=== PATIENT | male | born 1955 | race Caucasian/White ===

== ENCOUNTER 2018-05-14 18:14 | Inpatient (IN) | payer MEDICAID ==
[~2018-05-14] VITALS: Ht 172.7 cm; Wt 106.1 kg
[~2018-05-14 18:14] MED LIST: ATOR80TA PO; BENA20TA77 PO; METO-385 PO; levemir SQ; novolog SUBCUT
[2018-05-15] MEDS ORDERED: ASPIRIN 325MG TABLET PO ONE (02:30)
[2018-05-15 02:52] LABS: BASOPHILS % 0.4 % (0.0-2.0); CHLORIDE 99 mEq/L (98-107); EOSINOPHILS % 2.1 % (0.0-5.0); HEMATOCRIT. 47.8 % (42.0-52.0); LYMPHOCYTES % 30.3 % (20.0-50.0); MEAN CORPUSCULAR HEMOGLOBIN 31.1 pg (28.0-32.0); MEAN CORPUSCULAR VOLUME 93.1 fL (80.0-94.0); MEAN PLATELET VOLUME 9.2 fl (7.4-10.4); MONOCYTES % 14.2 % (2.0-8.0); PLATELET 283 x1000/uL (130-400); RED BLOOD CELL COUNT 5.14 mill/uL (4.7-6.1); RED CELL DISTRIBUTION WIDTH 13.5 % (11.6-14.6)
[2018-05-15] MEDS ORDERED: HYDROCODONE/ACETAMINOPHEN 5/325MG TABLET PO PRN (08:15)
[2018-05-15] MEDS ORDERED: DIPHENHYDRAMINE 50MG/ML VIAL IV PRN (08:15)
[2018-05-15] MEDS ORDERED: ONDANSETRON HCL 4MG/2ML INJ IV PRN (08:15)
[2018-05-15] MEDS ORDERED: ACETAMINOPHEN 325MG TABLET PO PRN (08:15)
[2018-05-15] MEDS ORDERED: DOCUSATE SODIUM 100MG CAPSULE PO PRN (08:15)
[2018-05-15] MEDS ORDERED: IPRATROPIUM/ALBUTEROL 0.5-3(2.5)MG/3ML NEB INH PRN (08:15)
[2018-05-15 08:25] LABS: PHOSPHORUS 2.9 mg/dL (2.5-4.9)
[2018-05-15 14:30] VITALS: BP 178/95
[2018-05-15] MEDS: ASPIRIN 81MG EC TABLET PO SCH (15:47)
[2018-05-15] MEDS: METOPROLOL TARTRATE 50MG TABLET PO SCH ×2 (15:47→21:22)
[2018-05-15] MEDS: CLOPIDOGREL 75MG TABLET PO SCH (15:47)
[2018-05-15 16:00] VITALS: BP 150/86
[2018-05-15] MEDS ORDERED: DEXTROSE 50% WATER 50ML SYRINGE IV PRN (17:00)
[2018-05-15] MEDS ORDERED: INFLUENZA VIRUS VACCINE(AFLURIA) 0.5ML SYR IM ONE (17:00)
[2018-05-15] MEDS: BLOOD SUGAR DIAGNOSTIC STRIP TEST SCH ×2 (17:40→21:23)
[2018-05-15] MEDS: INSULIN LISPRO 100 UNITS/ML SUBCUT SCH ×2 (18:09→21:32)
[2018-05-15 19:12] LABS: CREATINE KINASE MB FRACTION 9.6 ng/mL (0.5-3.6)
[2018-05-15 20:00] VITALS: BP_SYST 131; BP_SYST 136; BP_DIAS 65; BP_DIAS 70
[2018-05-15] MEDS: ATORVASTATIN CALCIUM 40MG TABLET PO SCH (21:22)
[2018-05-15] MEDS: AMLODIPINE 5MG TABLET PO SCH (21:22)
[2018-05-15] MEDS: ENOXAPARIN 30MG/0.3ML SYR SUBCUT SCH (21:23)
[2018-05-16] VITALS: BP 138/76
[2018-05-16 04:00] VITALS: BP 146/85
[2018-05-16] MEDS ORDERED: INFLUENZA VIRUS VACCINE(AFLURIA) 0.5ML SYR IM ONE (06:00)
[2018-05-16] MEDS: GUAIFENESIN 200MG/10ML SUGAR FREE UDC PO PRN ×4 (06:11→22:09)
[2018-05-16] MEDS: BLOOD SUGAR DIAGNOSTIC STRIP TEST SCH ×4 (06:16→21:55)
[2018-05-16 06:21] LABS: BASOPHILS % 0.5 % (0.0-2.0); EOSINOPHILS % 2.7 % (0.0-5.0); HEMATOCRIT. 47.3 % (42.0-52.0); LYMPHOCYTES % 25.5 % (20.0-50.0); MEAN CORPUSCULAR HEMOGLOBIN 31.7 pg (28.0-32.0); MEAN CORPUSCULAR VOLUME 93.5 fL (80.0-94.0); MEAN PLATELET VOLUME 9.2 fl (7.4-10.4); MONOCYTES % 12.8 % (2.0-8.0); NEUTROPHILS % 58.5 % (40.0-76.0); PLATELET 273 x1000/uL (130-400); RED BLOOD CELL COUNT 5.06 mill/uL (4.7-6.1); RED CELL DISTRIBUTION WIDTH 13.4 % (11.6-14.6)
[2018-05-16 06:22] LABS: CHLORIDE 101 mEq/L (98-107)
[2018-05-16 06:32] LABS: LDL CHOLESTEROL 106 mg/dL (5-100)
[2018-05-16 06:33] LABS: CREATINE KINASE 185 IU/L (39-308); HDL CHOLESTEROL 33 mg/dL (40-59)
[2018-05-16 08:00] VITALS: BP 137/78
[2018-05-16] MEDS: ASPIRIN 81MG EC TABLET PO SCH (08:54)
[2018-05-16] MEDS: CLOPIDOGREL 75MG TABLET PO SCH (08:54)
[2018-05-16] MEDS: AMLODIPINE 5MG TABLET PO SCH ×2 (08:54→21:55)
[2018-05-16] MEDS: ENOXAPARIN 30MG/0.3ML SYR SUBCUT SCH ×2 (08:55→21:54)
[2018-05-16] MEDS: INSULIN LISPRO 100 UNITS/ML SUBCUT SCH ×4 (08:55→22:07)
[2018-05-16] MEDS: METOPROLOL TARTRATE 50MG TABLET PO SCH ×2 (09:00→21:54)
[2018-05-16 10:02] LABS: CLARITY URINE CLEAR (CLEAR); COLOR URINE YELLOW (YELLOW); KETONES URINE TRACE (NEGATIVE); LEUKOCYTE ESTERASE URINE NEGATIVE (NEGATIVE); NITRITE URINE NEGATIVE (NEGATIVE); OCCULT BLOOD URINE NEGATIVE (NEGATIVE); PROTEIN URINE TRACE (NEGATIVE); SPECIFIC GRAVITY URINE 1.037 (1.005-1.030); UROBILINOGEN URINE 0.2 E.U./dL (0.2-1.0)
[2018-05-16 12:00] VITALS: BP 141/57
[2018-05-16] MEDS ORDERED: LISINOPRIL 10MG TABLET PO NR (14:15)
[2018-05-16 16:00] VITALS: BP 134/68
[2018-05-16 20:00] VITALS: BP 125/55
[2018-05-16] MEDS: ATORVASTATIN CALCIUM 40MG TABLET PO SCH (21:54)
[2018-05-16] MEDS: NITROGLYCERIN OINT 1GM/INCH UDPKT TD SCH (22:05)
[2018-05-16] MEDS: INSULIN GLARGINE UD 100 UNITS/ML SYR SUBCUT SCH (22:08)
[2018-05-17] VITALS: BP 109/52
[2018-05-17 04:00] VITALS: BP 97/43
[2018-05-17] MEDS: BLOOD SUGAR DIAGNOSTIC STRIP TEST SCH ×4 (05:50→21:12)
[2018-05-17] MEDS: GUAIFENESIN 200MG/10ML SUGAR FREE UDC PO PRN ×4 (05:50→22:35)
[2018-05-17] MEDS: NITROGLYCERIN OINT 1GM/INCH UDPKT TD SCH ×3 (05:51→21:10)
[2018-05-17 06:44] LABS: BASOPHILS % 0.5 % (0.0-2.0); EOSINOPHILS % 2.9 % (0.0-5.0); HEMOGLOBIN. 14.8 g/dL (14.0-18.0); LYMPHOCYTES % 27.9 % (20.0-50.0); MEAN CORPUSCULAR HEMOGLOBIN 30.7 pg (28.0-32.0); MEAN CORPUSCULAR VOLUME 93.5 fL (80.0-94.0); MEAN PLATELET VOLUME 9.4 fl (7.4-10.4); MONOCYTES % 11.5 % (2.0-8.0); NEUTROPHILS % 57.2 % (40.0-76.0); PLATELET 268 x1000/uL (130-400); RED BLOOD CELL COUNT 4.81 mill/uL (4.7-6.1); RED CELL DISTRIBUTION WIDTH 13.3 % (11.6-14.6)
[2018-05-17 06:52] LABS: CHLORIDE 101 mEq/L (98-107)
[2018-05-17 07:17] LABS: CREATINE KINASE 148 IU/L (39-308)
[2018-05-17 07:20] LABS: CREATINE KINASE MB FRACTION 5.9 ng/mL (0.5-3.6)
[2018-05-17 08:00] VITALS: BP 112/49
[2018-05-17] MEDS: AMLODIPINE 5MG TABLET PO SCH ×2 (08:56→21:10)
[2018-05-17] MEDS: ASPIRIN 81MG EC TABLET PO SCH (08:56)
[2018-05-17] MEDS: CLOPIDOGREL 75MG TABLET PO SCH (08:56)
[2018-05-17] MEDS: ENOXAPARIN 30MG/0.3ML SYR SUBCUT SCH ×2 (08:57→21:00)
[2018-05-17] MEDS: INSULIN LISPRO 100 UNITS/ML SUBCUT SCH ×4 (08:58→21:52)
[2018-05-17] MEDS: METOPROLOL TARTRATE 50MG TABLET PO SCH ×2 (09:00→21:10)
[2018-05-17] MEDS: INSULIN GLARGINE UD 100 UNITS/ML SYR SUBCUT SCH ×2 (10:30→21:09)
[2018-05-17 12:00] VITALS: BP 132/68
[2018-05-17 16:00] VITALS: BP 123/36
[2018-05-17 20:00] VITALS: BP 116/51
[2018-05-17] MEDS: ATORVASTATIN CALCIUM 40MG TABLET PO SCH (21:10)
[2018-05-18] VITALS (13 sets, daily range): BP systolic 100–174; BP diastolic 44–103
[2018-05-18] MEDS: BLOOD SUGAR DIAGNOSTIC STRIP TEST SCH ×3 (05:35→20:56)
[2018-05-18] MEDS: NITROGLYCERIN OINT 1GM/INCH UDPKT TD SCH ×3 (05:35→21:04)
[2018-05-18 07:04] LABS: HEMATOCRIT 44.6 % (42.0-52.0); HEMOGLOBIN 14.9 g/dL (14.0-18.0); MEAN CORPUSCULAR HEMOGLOBIN 31.1 pg (28.0-32.0); PLATELET 269 x1000/uL (130-400); RED BLOOD CELL COUNT 4.79 mill/uL (4.7-6.1); RED CELL DISTRIBUTION WIDTH 13.4 % (11.6-14.6)
[2018-05-18 07:33] LABS: CHLORIDE 104 mEq/L (98-107)
[2018-05-18] MEDS: INSULIN LISPRO 100 UNITS/ML SUBCUT SCH ×3 (07:52→21:01)
[2018-05-18] MEDS: ENOXAPARIN 30MG/0.3ML SYR SUBCUT SCH (09:00)
[2018-05-18] MEDS: ASPIRIN 81MG EC TABLET PO SCH (09:00)
[2018-05-18] MEDS: CLOPIDOGREL 75MG TABLET PO SCH (09:00)
[2018-05-18] MEDS ORDERED: MIDAZOLAM HCL 2 MG/2 ML VIAL ONE (10:21)
[2018-05-18] MEDS ORDERED: FENTANYL CITRATE/PF 50MCG/ML 2ML VIAL ONE (10:21)
[2018-05-18] MEDS ORDERED: IODIXANOL 320MG/ML 100 ML BOTTLE IV ONE ×2 (10:22→11:31)
[2018-05-18] MEDS ORDERED: LIDOCAINE HCL 1% 20ML VIAL (Pyxis) INJ ONE (10:22)
[2018-05-18] MEDS ORDERED: IOHEXOL-300 100 ML BOTTLE ONE (11:15)
[2018-05-18] MEDS ORDERED: HYDRALAZINE 20MG/ML VIAL ONE (11:43)
[2018-05-18] MEDS ORDERED: ASPIRIN 325MG TABLET ONE (11:54)
[2018-05-18] MEDS ORDERED: CLOPIDOGREL 75MG TABLET ONE (11:55)
[2018-05-18] MEDS ORDERED: ACETAMINOPHEN 325MG TABLET PO PRN (12:00)
[2018-05-18] MEDS ORDERED: ATROPINE SULFATE 1MG/10ML SYR IV PRN (12:00)
[2018-05-18] MEDS ORDERED: HEPARIN SODIUM 1,000 UNIT/1ML VIAL IV ONE (14:20)
[2018-05-18] MEDS: AMLODIPINE 5MG TABLET PO SCH ×2 (14:31→21:03)
[2018-05-18] MEDS: METOPROLOL TARTRATE 50MG TABLET PO SCH ×2 (14:32→20:59)
[2018-05-18] MEDS ORDERED: ENOXAPARIN 30MG/0.3ML SYR SUBCUT SCH (20:00)
[2018-05-18] MEDS ORDERED: ENOXAPARIN 40MG/0.4ML SYR SUBCUT SCH (20:52)
[2018-05-18] MEDS: ATORVASTATIN CALCIUM 40MG TABLET PO SCH (20:56)
[2018-05-18] MEDS: GUAIFENESIN 200MG/10ML SUGAR FREE UDC PO PRN ×2 (20:56→20:58)
[2018-05-18] MEDS ORDERED: DOXAZOSIN MESYLATE 2MG TABLET PO SCH (21:00)
[2018-05-18] MEDS: INSULIN GLARGINE UD 100 UNITS/ML SYR SUBCUT SCH (21:03)
[2018-05-19] VITALS (10 sets, daily range): BP systolic 108–152; BP diastolic 63–84
[2018-05-19] MEDS: BLOOD SUGAR DIAGNOSTIC STRIP TEST SCH ×2 (06:20→11:14)
[2018-05-19] MEDS: NITROGLYCERIN OINT 1GM/INCH UDPKT TD SCH ×2 (06:31→14:00)
[2018-05-19 07:08] LABS: CHLORIDE 103 mEq/L (98-107)
[2018-05-19 07:09] LABS: BASOPHILS % 0.4 % (0.0-2.0); EOSINOPHILS % 1.6 % (0.0-5.0); HEMATOCRIT. 43.4 % (42.0-52.0); HEMOGLOBIN. 14.6 g/dL (14.0-18.0); LYMPHOCYTES % 18.7 % (20.0-50.0); MEAN CORPUSCULAR HEMOGLOBIN 31.4 pg (28.0-32.0); MEAN CORPUSCULAR VOLUME 93.3 fL (80.0-94.0); MEAN PLATELET VOLUME 9.5 fl (7.4-10.4); MONOCYTES % 10.8 % (2.0-8.0); NEUTROPHILS % 68.5 % (40.0-76.0); PLATELET 262 x1000/uL (130-400); RED BLOOD CELL COUNT 4.65 mill/uL (4.7-6.1); RED CELL DISTRIBUTION WIDTH 13.5 % (11.6-14.6)
[2018-05-19] MEDS: CLOPIDOGREL 75MG TABLET PO SCH (07:55)
[2018-05-19] MEDS: ASPIRIN 81MG EC TABLET PO SCH (07:56)
[2018-05-19] MEDS: AMLODIPINE 5MG TABLET PO SCH (07:56)
[2018-05-19] MEDS: INSULIN LISPRO 100 UNITS/ML SUBCUT SCH ×2 (07:56→12:42)
[2018-05-19] MEDS: METOPROLOL TARTRATE 50MG TABLET PO SCH (07:56)
[2018-05-19] MEDS: INSULIN GLARGINE UD 100 UNITS/ML SYR SUBCUT SCH (09:44)
[2018-05-19] MEDS ORDERED: CLOP75TA16 MT (12:34)
[2018-05-19] MEDS ORDERED: NITROGLYCERIN 50MCG/ML 10ML VIAL (CATH LAB) IV ONE (14:49)
[2018-05-19] MEDS ORDERED: NICARDIPINE 100MCG/ML 10ML VIAL (CATH LAB) IV ONE (14:49)
== END 2018-05-19 16:30 | disposition home or self-care (01) | DRG 174 ==
LOC: ER 18:37 → 7WST 05-15 06:50 → EDBEDREQ 05-15 07:04 → EDBEDREQTM 05-15 07:04 → ENRESERV 05-15 11:18 → 3WST 05-18 12:21
PROVIDERS: ADMIT Internal Medicine; ATTEND Internal Medicine
PROC: 027034Z Dilation of Coronary Artery, One Artery with Drug-eluting Intraluminal Device, Percutaneous Approach (ICD-10-PCS; principal; 2018-05-18)
PROC: 4A023N7 Measurement of Cardiac Sampling and Pressure, Left Heart, Percutaneous Approach (ICD-10-PCS; 2018-05-18)
PROC: B2111ZZ Fluoroscopy of Multiple Coronary Arteries using Low Osmolar Contrast (ICD-10-PCS; 2018-05-18)
DX: I21.4 Non-ST elevation (NSTEMI) myocardial infarction (principal); E11.65 Type 2 diabetes mellitus with hyperglycemia; E44.1 Mild protein-calorie malnutrition; E78.5 Hyperlipidemia, unspecified; I10 Essential (primary) hypertension; E66.01 Morbid (severe) obesity due to excess calories; E78.00 Pure hypercholesterolemia, unspecified; M54.5 Low back pain; G89.29 Other chronic pain; I25.118 Atherosclerotic heart disease of native coronary artery with other forms of angina pectoris; I45.10 Unspecified right bundle-branch block; Z95.5 Presence of coronary angioplasty implant and graft; I25.2 Old myocardial infarction; Z79.84 Long term (current) use of oral hypoglycemic drugs; Z86.73 Personal history of transient ischemic attack (TIA), and cerebral infarction without residual deficits; Z71.3 Dietary counseling and surveillance; Z68.35 Body mass index [BMI] 35.0-35.9, adult; Z82.49 Family history of ischemic heart disease and other diseases of the circulatory system
CPT/HCPCS: 36415; 71045; 72141; 72148; 80048; 80061; 82550; 82553; 82962; 83036; 83735; 83880; 84100; 84443; 84484; 85027; 85347; 90686; 92928; 93005; 93306; 93458; 93970; 97166; 99285; C1725; C1760; C1769; C1874; C1887; C1893; J0360; J1644; J1650; J1815; J2250; J3010; J3490; Q9967

== ENCOUNTER 2020-04-27 15:45 | Inpatient (IN) | payer MEDICAID ==
[~2020-04-27] VITALS: Ht 170.2 cm; Wt 107.0 kg
[~2020-04-27 15:45] MED LIST changes: +CLOP-31 MT
[2020-04-27] MEDS: NYSTATIN 100,000 UNITS/GM OINT 15GM TOP SCH (17:00)
[2020-04-27 19:22] LABS: BASOPHILS % 0.4 % (0.0-2.0); EOSINOPHILS % 1.5 % (0.0-5.0); LYMPHOCYTES % 24.3 % (20.0-50.0); MEAN CORPUSCULAR HEMOGLOBIN 31.3 pg (28.0-32.0); MEAN CORPUSCULAR VOLUME 93.9 fL (80.0-94.0); MEAN PLATELET VOLUME 8.4 fl (7.4-10.4); MONOCYTES % 9.2 % (2.0-8.0); NEUTROPHILS % 64.6 % (40.0-76.0); PLATELET 385 x1000/uL (130-400); RED BLOOD CELL COUNT 4.79 mill/uL (4.7-6.1); RED CELL DISTRIBUTION WIDTH 13.5 % (11.6-14.6)
[2020-04-27 21:42] LABS: CLARITY URINE CLEAR (CLEAR); COLOR URINE YELLOW (YELLOW); KETONES URINE NEGATIVE (NEGATIVE); LEUKOCYTE ESTERASE URINE NEGATIVE (NEGATIVE); NITRITE URINE NEGATIVE (NEGATIVE); OCCULT BLOOD URINE NEGATIVE (NEGATIVE); PROTEIN URINE NEGATIVE (NEGATIVE); SPECIFIC GRAVITY URINE 1.015 (1.005-1.030)
[2020-04-28] MEDS: NYSTATIN 100,000 UNITS/GM OINT 15GM TOP SCH ×2 (09:08→21:00)
[2020-04-28] MEDS ORDERED: DEXTROSE 50% WATER 50ML SYRINGE IV PRN (16:30)
[2020-04-28 17:00] VITALS: BP 136/73
[2020-04-28] MEDS ORDERED: ENOXAPARIN 80MG/0.8ML SYR SUBCUT SCH (17:00)
[2020-04-28] MEDS: BLOOD SUGAR DIAGNOSTIC STRIP TEST SCH ×2 (17:38→21:14)
[2020-04-28] MEDS: INSULIN LISPRO 100 UNITS/ML SUBCUT SCH ×2 (17:38→21:00)
[2020-04-28 17:50] VITALS: BP 136/73
[2020-04-28 20:00] VITALS: BP 122/70
[2020-04-28] MEDS: ACETAMINOPHEN 325MG TABLET PO PRN (21:23)
[2020-04-29] VITALS: BP 135/85
[2020-04-29 04:00] VITALS: BP 137/82
[2020-04-29] MEDS: ACETAMINOPHEN 325MG TABLET PO PRN (04:44)
[2020-04-29] MEDS: BLOOD SUGAR DIAGNOSTIC STRIP TEST SCH ×4 (06:56→21:00)
[2020-04-29 07:28] LABS: BASOPHILS % 0.5 % (0.0-2.0); EOSINOPHILS % 1.9 % (0.0-5.0); HEMATOCRIT. 43.2 % (42.0-52.0); HEMOGLOBIN. 14.4 g/dL (14.0-18.0); LYMPHOCYTES % 26.4 % (20.0-50.0); MEAN CORPUSCULAR HEMOGLOBIN 31.4 pg (28.0-32.0); MEAN CORPUSCULAR VOLUME 94.2 fL (80.0-94.0); MEAN PLATELET VOLUME 8.8 fl (7.4-10.4); MONOCYTES % 9.8 % (2.0-8.0); NEUTROPHILS % 61.4 % (40.0-76.0); PLATELET 343 x1000/uL (130-400); RED BLOOD CELL COUNT 4.59 mill/uL (4.7-6.1); RED CELL DISTRIBUTION WIDTH 13.3 % (11.6-14.6)
[2020-04-29 07:33] LABS: CHLORIDE 101 mEq/L (98-107)
[2020-04-29 07:37] LABS: INR 1.1
[2020-04-29] MEDS: INSULIN LISPRO 100 UNITS/ML SUBCUT SCH ×4 (07:50→21:00)
[2020-04-29 08:00] VITALS: BP 142/85
[2020-04-29] MEDS ORDERED: ENOXAPARIN 40MG/0.4ML SYR SUBCUT SCH (09:00)
[2020-04-29] MEDS ORDERED: METF-874 MT (11:20)
[2020-04-29] MEDS ORDERED: LISI-186 PO (11:23)
[2020-04-29] MEDS ORDERED: GLIP5TAB12 PO (11:23)
[2020-04-29] MEDS ORDERED: HYDR-4134 MT (11:23)
[2020-04-29] MEDS ORDERED: CLON0.1T MT (11:31)
[2020-04-29] MEDS ORDERED: METO25TA6 PO (11:31)
[2020-04-29] MEDS ORDERED: GABA-529 MT (11:31)
[2020-04-29] MEDS ORDERED: TAMS-11 MT (11:31)
[2020-04-29] MEDS ORDERED: CLOP75TA33 MT (11:31)
[2020-04-29] MEDS ORDERED: TRAZ-251 PO (11:31)
[2020-04-29] MEDS ORDERED: HYDR-4067 PO (11:31)
[2020-04-29] MEDS ORDERED: ESCI20TA47 MT (11:31)
[2020-04-29] MEDS ORDERED: FURO40TA5 PO (11:31)
[2020-04-29] MEDS ORDERED: PANT20TA17 MT (11:31)
[2020-04-29 12:00] VITALS: BP 128/65
[2020-04-29 16:00] VITALS: BP 137/66
[2020-04-29 20:00] VITALS: BP 156/78
[2020-04-30] VITALS: BP 159/78
[2020-04-30 04:00] VITALS: BP 148/61
[2020-04-30] MEDS: BLOOD SUGAR DIAGNOSTIC STRIP TEST SCH ×4 (06:14→21:06)
[2020-04-30] MEDS: INSULIN LISPRO 100 UNITS/ML SUBCUT SCH ×4 (07:50→21:00)
[2020-04-30] MEDS: ENOXAPARIN 30MG/0.3ML SYR SUBCUT SCH ×2 (09:26→21:08)
[2020-04-30 20:00] VITALS: BP 141/68
[2020-05-01] VITALS: BP 120/75
[2020-05-01 04:00] VITALS: BP 130/75
[2020-05-01] MEDS: BLOOD SUGAR DIAGNOSTIC STRIP TEST SCH ×4 (06:45→21:41)
[2020-05-01] MEDS: INSULIN LISPRO 100 UNITS/ML SUBCUT SCH ×4 (07:50→21:51)
[2020-05-01 08:00] VITALS: BP 153/51
[2020-05-01] MEDS: ENOXAPARIN 30MG/0.3ML SYR SUBCUT SCH ×2 (09:56→21:47)
[2020-05-01 12:00] VITALS: BP 145/65
[2020-05-01 16:00] VITALS: BP 141/51
[2020-05-01 20:00] VITALS: BP 152/82
[2020-05-02] VITALS: BP 145/83
[2020-05-02 04:00] VITALS: BP 137/72
[2020-05-02] MEDS: BLOOD SUGAR DIAGNOSTIC STRIP TEST SCH ×4 (07:16→21:59)
[2020-05-02] MEDS: INSULIN LISPRO 100 UNITS/ML SUBCUT SCH ×4 (07:18→21:55)
[2020-05-02 08:00] VITALS: BP 147/84
[2020-05-02] MEDS: ENOXAPARIN 30MG/0.3ML SYR SUBCUT SCH ×2 (08:44→21:58)
[2020-05-02 12:00] VITALS: BP 147/66
[2020-05-02 16:00] VITALS: BP 150/75
[2020-05-02 20:00] VITALS: BP 164/77
[2020-05-03 04:00] VITALS: BP 151/70
[2020-05-03] MEDS: BLOOD SUGAR DIAGNOSTIC STRIP TEST SCH ×4 (06:43→21:12)
[2020-05-03] MEDS: INSULIN LISPRO 100 UNITS/ML SUBCUT SCH ×4 (07:50→21:18)
[2020-05-03 08:00] VITALS: BP 151/59
[2020-05-03] MEDS: ENOXAPARIN 30MG/0.3ML SYR SUBCUT SCH ×2 (11:27→21:13)
[2020-05-03 12:00] VITALS: BP 162/64
[2020-05-03 16:00] VITALS: BP 153/60
[2020-05-03 20:00] VITALS: BP 132/72
[2020-05-04] VITALS: BP 136/74
[2020-05-04 04:00] VITALS: BP 153/72
[2020-05-04] MEDS: BLOOD SUGAR DIAGNOSTIC STRIP TEST SCH ×4 (06:46→20:58)
[2020-05-04 07:29] LABS: HEMATOCRIT 41.5 % (42.0-52.0); MEAN CORPUSCULAR HEMOGLOBIN 31.4 pg (28.0-32.0); MEAN CORPUSCULAR VOLUME 93.3 fL (80.0-94.0); PLATELET 338 x1000/uL (130-400); RED BLOOD CELL COUNT 4.45 mill/uL (4.7-6.1); RED CELL DISTRIBUTION WIDTH 13.4 % (11.6-14.6)
[2020-05-04 07:50] LABS: CHLORIDE 102 mEq/L (98-107)
[2020-05-04 08:00] VITALS: BP 138/70
[2020-05-04] MEDS: ENOXAPARIN 30MG/0.3ML SYR SUBCUT SCH ×2 (08:26→21:25)
[2020-05-04] MEDS: INSULIN LISPRO 100 UNITS/ML SUBCUT SCH ×4 (08:29→23:36)
[2020-05-04 20:00] VITALS: BP 157/61
[2020-05-04] MEDS: CLONIDINE 0.1MG TABLET PO PRN (21:26)
[2020-05-04] MEDS: ACETAMINOPHEN 325MG TABLET PO PRN (21:27)
[2020-05-05] VITALS: BP 150/67
[2020-05-05 04:00] VITALS: BP 121/59
[2020-05-05] MEDS: BLOOD SUGAR DIAGNOSTIC STRIP TEST SCH ×4 (07:47→21:00)
[2020-05-05] MEDS: INSULIN LISPRO 100 UNITS/ML SUBCUT SCH ×4 (07:50→22:02)
[2020-05-05 08:00] VITALS: BP 138/55
[2020-05-05] MEDS: ENOXAPARIN 30MG/0.3ML SYR SUBCUT SCH ×2 (08:55→21:37)
[2020-05-05 12:00] VITALS: BP 122/81
[2020-05-05 16:00] VITALS: BP 159/55
[2020-05-05 20:00] VITALS: BP 168/68
[2020-05-05] MEDS: CLONIDINE 0.1MG TABLET PO PRN (21:38)
[2020-05-06] VITALS: BP 125/64
[2020-05-06 04:00] VITALS: BP 130/60
[2020-05-06] MEDS: BLOOD SUGAR DIAGNOSTIC STRIP TEST SCH ×4 (06:20→20:42)
[2020-05-06] MEDS: INSULIN LISPRO 100 UNITS/ML SUBCUT SCH ×4 (07:50→20:42)
[2020-05-06 08:00] VITALS: BP 106/68
[2020-05-06] MEDS: ACETAMINOPHEN 325MG TABLET PO PRN (09:25)
[2020-05-06] MEDS: ENOXAPARIN 30MG/0.3ML SYR SUBCUT SCH ×2 (09:25→20:44)
[2020-05-06 12:00] VITALS: BP 126/58
[2020-05-06 16:00] VITALS: BP 144/66
[2020-05-06 20:00] VITALS: BP 163/72
[2020-05-07] VITALS: BP 158/75
[2020-05-07 04:00] VITALS: BP 165/66
[2020-05-07] MEDS: CLONIDINE 0.1MG TABLET PO PRN (04:48)
[2020-05-07] MEDS: BLOOD SUGAR DIAGNOSTIC STRIP TEST SCH ×4 (07:01→21:15)
[2020-05-07 08:00] VITALS: BP 144/70
[2020-05-07] MEDS: ENOXAPARIN 30MG/0.3ML SYR SUBCUT SCH ×2 (08:41→20:59)
[2020-05-07] MEDS: INSULIN LISPRO 100 UNITS/ML SUBCUT SCH ×4 (08:46→21:10)
[2020-05-07 12:00] VITALS: BP 151/69
[2020-05-07 13:10] LABS: HEMATOCRIT 36.9 % (42.0-52.0); HEMOGLOBIN 12.5 g/dL (14.0-18.0); MEAN CORPUSCULAR HEMOGLOBIN 31.2 pg (28.0-32.0); MEAN CORPUSCULAR VOLUME 91.9 fL (80.0-94.0); PLATELET 309 x1000/uL (130-400); RED BLOOD CELL COUNT 4.01 mill/uL (4.7-6.1); RED CELL DISTRIBUTION WIDTH 13.3 % (11.6-14.6)
[2020-05-07 16:00] VITALS: BP 116/68
[2020-05-07 20:00] VITALS: BP 131/68
[2020-05-08] VITALS: BP 154/75
[2020-05-08 04:00] VITALS: BP 150/70
[2020-05-08] MEDS: BLOOD SUGAR DIAGNOSTIC STRIP TEST SCH ×4 (07:30→21:00)
[2020-05-08] MEDS: INSULIN LISPRO 100 UNITS/ML SUBCUT SCH ×4 (07:50→22:29)
[2020-05-08 08:00] VITALS: BP 155/67
[2020-05-08] MEDS: ENOXAPARIN 30MG/0.3ML SYR SUBCUT SCH ×2 (09:22→22:25)
[2020-05-08 12:00] VITALS: BP 156/74
[2020-05-08 16:00] VITALS: BP 135/67
[2020-05-08 20:00] VITALS: BP 157/70
[2020-05-09] VITALS: BP 154/69
[2020-05-09 04:00] VITALS: BP 155/64
[2020-05-09] MEDS: BLOOD SUGAR DIAGNOSTIC STRIP TEST SCH ×4 (06:35→21:34)
[2020-05-09] MEDS: INSULIN LISPRO 100 UNITS/ML SUBCUT SCH ×4 (07:50→21:41)
[2020-05-09 08:00] VITALS: BP 145/67
[2020-05-09] MEDS: ENOXAPARIN 30MG/0.3ML SYR SUBCUT SCH ×2 (08:51→21:33)
[2020-05-09 12:00] VITALS: BP 159/75
[2020-05-09 16:00] VITALS: BP 143/66
[2020-05-09 20:00] VITALS: BP 159/68
[2020-05-10] VITALS: BP_SYST 144; BP_SYST 149; BP_DIAS 54; BP_DIAS 60
[2020-05-10] MEDS: ACETAMINOPHEN 325MG TABLET PO PRN (02:16)
[2020-05-10 04:00] VITALS: BP 150/72
[2020-05-10] MEDS: INSULIN LISPRO 100 UNITS/ML SUBCUT SCH ×4 (07:50→21:35)
[2020-05-10 08:00] VITALS: BP 148/50
[2020-05-10] MEDS: BLOOD SUGAR DIAGNOSTIC STRIP TEST SCH ×3 (08:00→21:35)
[2020-05-10] MEDS: ENOXAPARIN 30MG/0.3ML SYR SUBCUT SCH ×2 (09:46→21:34)
[2020-05-10 12:00] VITALS: BP 146/67
[2020-05-10 16:00] VITALS: BP 158/70
[2020-05-10 17:06] LABS: OVA & PARASITE EXAM Final report (.)
[2020-05-10 22:31] VITALS: BP 158/63
[2020-05-11 04:51] VITALS: BP 145/65
[2020-05-11 07:21] LABS: BASOPHILS % 0.7 % (0.0-2.0); HEMATOCRIT. 38.1 % (42.0-52.0); LYMPHOCYTES % 23.4 % (20.0-50.0); MEAN CORPUSCULAR HEMOGLOBIN 31.3 pg (28.0-32.0); MEAN PLATELET VOLUME 8.2 fl (7.4-10.4); MONOCYTES % 10.4 % (2.0-8.0); NEUTROPHILS % 62.5 % (40.0-76.0); PLATELET 352 x1000/uL (130-400); RED BLOOD CELL COUNT 4.14 mill/uL (4.7-6.1); RED CELL DISTRIBUTION WIDTH 13.1 % (11.6-14.6)
[2020-05-11] MEDS: BLOOD SUGAR DIAGNOSTIC STRIP TEST SCH ×4 (07:36→20:07)
[2020-05-11] MEDS: INSULIN LISPRO 100 UNITS/ML SUBCUT SCH ×4 (07:36→22:07)
[2020-05-11 08:00] VITALS: BP 162/74
[2020-05-11 09:00] LABS: CHLORIDE 105 mEq/L (98-107)
[2020-05-11] MEDS: ENOXAPARIN 30MG/0.3ML SYR SUBCUT SCH ×2 (09:46→20:07)
[2020-05-11 16:00] VITALS: BP 150/66
[2020-05-11 20:00] VITALS: BP 136/65
[2020-05-12] VITALS: BP 131/56
[2020-05-12 04:00] VITALS: BP 130/60
[2020-05-12] MEDS: BLOOD SUGAR DIAGNOSTIC STRIP TEST SCH ×3 (07:15→17:27)
[2020-05-12] MEDS: ENOXAPARIN 30MG/0.3ML SYR SUBCUT SCH (08:25)
[2020-05-12] MEDS: INSULIN LISPRO 100 UNITS/ML SUBCUT SCH ×3 (08:30→18:08)
[2020-05-12] MEDS: CLONIDINE 0.1MG TABLET PO PRN (17:48)
[2020-05-12 20:00] VITALS: BP 118/73
== END 2020-05-12 21:29 | DRG 420 ==
LOC: ER 15:45 → 6EST 04-28 13:13 → ENRESERV 04-28 15:10
PROVIDERS: ADMIT Internal Medicine; ATTEND Internal Medicine
DX: E11.65 Type 2 diabetes mellitus with hyperglycemia (principal); N17.0 Acute kidney failure with tubular necrosis; E78.5 Hyperlipidemia, unspecified; I10 Essential (primary) hypertension; E78.00 Pure hypercholesterolemia, unspecified; L98.499 Non-pressure chronic ulcer of skin of other sites with unspecified severity; Z20.822 Contact with and (suspected) exposure to COVID-19; Z74.01 Bed confinement status; Z79.899 Other long term (current) drug therapy; Z79.02 Long term (current) use of antithrombotics/antiplatelets; Z79.84 Long term (current) use of oral hypoglycemic drugs; Z82.49 Family history of ischemic heart disease and other diseases of the circulatory system; Z83.3 Family history of diabetes mellitus; I69.954 Hemiplegia and hemiparesis following unspecified cerebrovascular disease affecting left non-dominant side
CPT/HCPCS: 36415; 71045; 80048; 81003; 82962; 83036; 85025; 85027; 87015; 87045; 87177; 87209; 87426; 87427; 87449; 93005; 97110; 97162; 97530; 99285; A6261; J1650; J1815